=== PATIENT | female | born 1965 | race Caucasian/White ===

== ENCOUNTER → 2017-08-02 | Outpatient (CLI) | payer MEDICARE ==
[~2017-08-02] MED LIST: ASEN5TAB8 SL; BISA5TAB12 PO; CLON2TAB4 PO; ESOM40CA54 PO; LUBI24CA2 PO; ONDA4TAB4 PO; QUET400T54 PO; TRAM50TA4 PO; VENL37.587 PO
== END | disposition home or self-care (01) ==
LOC: RAH 10:57
PROVIDERS: ATTEND Family Medicine
DX: I51.7 Cardiomegaly (principal); R94.31 Abnormal electrocardiogram [ECG] [EKG]; R06.02 Shortness of breath
CPT/HCPCS: 93015; 93017; 93306

== ENCOUNTER → 2017-09-02 | Outpatient (CLI) | payer MEDICARE | LOC: OIH 10:14 | PROVIDERS: ATTEND Family Medicine | DX: Z01.818 Encounter for other preprocedural examination (principal) | CPT/HCPCS: 71046 ==

== ENCOUNTER 2017-11-13 11:15 | Observation (INO) | payer MEDICARE ==
[~2017-11-13] VITALS: Ht 161.3 cm; Wt 88.2 kg
[2017-11-13 12:06] VITALS: BP 131/81
[2017-11-13] MEDS ORDERED: CLON2TAB11 PO (12:13)
[2017-11-13] MEDS ORDERED: VENL37.587 PO (12:13)
[2017-11-13] MEDS ORDERED: ASEN5TAB8 SL (12:13)
[2017-11-13] MEDS ORDERED: ESOM40CA54 PO (12:13)
[2017-11-13] MEDS ORDERED: BISA5TAB12 PO (12:13)
[2017-11-13] MEDS ORDERED: QUET400T54 PO (12:13)
[2017-11-13] MEDS ORDERED: LUBI24CA2 PO (12:13)
[2017-11-13 12:14] LABS: HEMATOCRIT 45.8 % (36-48); MEAN CORPUSCULAR HEMOGLOBIN 30.9 pg (27.0-33.0); MEAN CORPUSCULAR HGB CONC 33.9 g/dL (32.0-36.0); MEAN CORPUSCULAR VOLUME 91.3 fL (79-99); PLATELET COUNT (AUTO) 250 K/uL (130-400); RED BLOOD CELL COUNT(AUTO) 5.02 MIL/uL (4.00-5.50); WHITE BLOOD COUNT (AUTO) 8.8 K/uL (4.8-10.8)
[2017-11-13 12:41] LABS: BASOPHILS % (MANUAL) 2 % (0-2); EOSINOPHILS % (MANUAL) 2 % (1-6); LYMPHOCYTES % (MANUAL) 50 % (22-44); MAN.DIFF COMMENT-IMPRESSION MANUAL DIFFERENTIAL; MONOCYTES % (MANUAL) 4 % (2-9); PLATELET MORPHOLOGY COMMENT ADEQUATE; REACTIVE LYMPHOCYTES 2 % (0-0); SEGMENTED NEUTROPHILS % 40 % (40-70)
[2017-11-14] VITALS (24 sets, daily range): BP systolic 106–138; BP diastolic 68–86
[2017-11-14] MEDS ORDERED: CLINDAMYCIN 900 MG/D5% WATER 50 ML IV ONE (07:22)
[2017-11-14] MEDS ORDERED: DEXAMETHASONE SOD PHOSPHATE 10MG/ML 1ML VIAL ONE (07:32)
[2017-11-14] MEDS ORDERED: GLYCOPYRROLATE 0.2 MG/ML 5 ML VIAL ONE (07:32)
[2017-11-14] MEDS ORDERED: MIDAZOLAM HCL 1 MG/ML 2ML VIAL ONE (07:32)
[2017-11-14] MEDS ORDERED: LIDOCAINE PF 2% 5ML ABBOJECT ONE (07:32)
[2017-11-14] MEDS ORDERED: PROPOFOL 10 MG/ML 20ML VIAL IV ONE (07:32)
[2017-11-14] MEDS ORDERED: ROPIVACAINE 0.5% 5MG/ML 30ML IJ ONE (07:39)
[2017-11-14] MEDS ORDERED: FENTANYL CITRATE PF 50 MCG/1 ML 2ML VIAL ONE (07:41)
[2017-11-14] MEDS ORDERED: MEPERIDINE-PF 25 MG/ML SYG ONE ×2 (09:22→09:34)
[2017-11-14 09:54] LABS: HEMATOCRIT 39.8 % (36-48)
[2017-11-14] MEDS ORDERED: BISACODYL 10 MG SUPP.RECT RC PRN (10:45)
[2017-11-14] MEDS ORDERED: MORPHINE SULFATE 10 MG/ML 1ML SYG IM PRN (10:45)
[2017-11-14] MEDS ORDERED: MAGNESIUM HYDROXIDE 30 ML/UDCUP PO PRN (10:45)
[2017-11-14] MEDS ORDERED: DEXTROSE 5%-LACTATED RINGERS 1,000 ML IV SCH (10:45)
[2017-11-14] MEDS ORDERED: MORPHINE SULFATE 4 MG/1ML SYG IM PRN (11:59)
[2017-11-14] MEDS: PROMETHAZINE HCL 25 MG/ML 1ML AMPULE IM PRN ×2 (12:04→19:19)
[2017-11-14] MEDS: CLINDAMYCIN 900 MG/D5% WATER 50 ML IV SCH ×2 (16:16→23:37)
[2017-11-14] MEDS: MORPHINE SULFATE 4 MG/1ML SYG IVP PRN ×2 (17:34→23:37)
[2017-11-14 18:11] LABS: HEMATOCRIT 40.1 % (36-48)
[2017-11-14] MEDS ORDERED: CLONAZEPAM 2 MG TABLET PO PRN (18:30)
[2017-11-14] MEDS ORDERED: KETOROLAC TROMETHAMINE 30MG/ML ONE (19:13)
[2017-11-14] MEDS: BISACODYL 5 MG TABLET.DR PO SCH (21:00)
[2017-11-14] MEDS: LUBIPROSTONE 24 MCG CAP PO SCH (21:00)
[2017-11-15 00:18] VITALS: BP 109/69
[2017-11-15 04:00] VITALS: BP 119/79
[2017-11-15] MEDS: KETOROLAC TROMETHAMINE 30MG/ML IV PRN ×2 (04:09→10:13)
[2017-11-15] MEDS: PROMETHAZINE HCL 25 MG/ML 1ML AMPULE IM PRN ×2 (04:14→10:16)
[2017-11-15] MEDS: BISACODYL 5 MG TABLET.DR PO SCH (08:09)
[2017-11-15] MEDS: LUBIPROSTONE 24 MCG CAP PO SCH (08:10)
[2017-11-15] MEDS: MORPHINE SULFATE 4 MG/1ML SYG IVP PRN ×2 (08:14→15:51)
[2017-11-15] MEDS ORDERED: VENLAFAXINE HCL XR 37.5 MG CAP PO SCH (09:00)
[2017-11-15 11:00] VITALS: BP 112/64
[2017-11-15] MEDS: TRAMADOL HCL 50 MG TABLET PO SCH ×2 (13:33→15:30)
[2017-11-15] MEDS ORDERED: TRAM50TA4 PO (17:38)
[2017-11-15] MEDS ORDERED: ONDA4TAB4 PO (17:39)
[2017-11-15] MEDS ORDERED: QUETIAPINE FUMARATE 400 MG PO SCH (21:00)
== END 2017-11-15 18:50 | disposition home or self-care (01) ==
LOC: DAHIP 11-14 06:17 → 4AH 11-14 09:49 → EDSTATUS 11-14 11:15
DX: M19.90 Unspecified osteoarthritis, unspecified site (principal); M22.40 Chondromalacia patellae, unspecified knee; Q24.0 Dextrocardia; E78.00 Pure hypercholesterolemia, unspecified; K21.9 Gastro-esophageal reflux disease without esophagitis; F41.9 Anxiety disorder, unspecified; F31.9 Bipolar disorder, unspecified; M22.02 Recurrent dislocation of patella, left knee; M22.12 Recurrent subluxation of patella, left knee; Z88.0 Allergy status to penicillin; I10 Essential (primary) hypertension; E78.5 Hyperlipidemia, unspecified
CPT/HCPCS: 27422; 27425; 36415 ×3; 85014 ×4; 85018 ×4; 85025; 94760; 96365; 96372 ×2; 96375 ×2; 96376 ×2; 97116 ×2; 97161; A4606; A4649; A4930 ×2; A6223; G0378 ×38; G8978; G8979; G8980; G8981; G8982; G8983; J1100; J1885 ×3; J2001; J2175 ×2; J2250; J2270 ×5; J2550 ×4; J2704; J2795; J3010; J3490 ×5; J7030; L1830

== ENCOUNTER → 2018-12-04 | Outpatient (CLI) | payer MEDICARE ==
[~2018-12-04] MED LIST changes: +CLON2TAB11 PO; -CLON2TAB4 PO
== END | disposition home or self-care (01) ==
LOC: OIH 10:43
PROVIDERS: ATTEND Family Medicine
DX: M17.12 Unilateral primary osteoarthritis, left knee (principal); M16.12 Unilateral primary osteoarthritis, left hip
CPT/HCPCS: 73502; 73562

== ENCOUNTER → 2019-09-08 | Outpatient (CLI) | payer MEDICARE | END | disposition home or self-care (01) | LOC: RAH 08:20 | PROVIDERS: ATTEND Internal Medicine | DX: K76.0 Fatty (change of) liver, not elsewhere classified (principal); Q39.3 Congenital stenosis and stricture of esophagus | CPT/HCPCS: 76705 ==

== ENCOUNTER 2022-09-22 21:57 | Emergency (ER) | payer MEDICARE ==
[~2022-09-22] VITALS: Ht 157.5 cm; Wt 71.7 kg
[~2022-09-22 21:57] MED LIST changes: +BISA-151 PO; -BISA5TAB12 PO
[2022-09-22 22:24] LABS: BASOPHILS % (AUTO) 0.8 % (0.0-5.0); EOSINOPHILS % (AUTO) 1.9 % (0.0-8.0); HEMATOCRIT 41.7 % (36-48); LYMPHOCYTES % (AUTO) 55.9 % (21.0-51.0); MEAN CORPUSCULAR HGB CONC 33.6 g/dL (32.0-36.0); MEAN CORPUSCULAR VOLUME 89.3 fL (79-99); MONOCYTES % (AUTO) 6.9 % (3.0-13.0); NEUTROPHILS % (AUTO) 34.2 % (40.0-77.0); PLATELET COUNT (AUTO) 252 K/uL (130-400); RED BLOOD CELL COUNT(AUTO) 4.67 MIL/uL (4.00-5.50); RED CELL DISTRIBUTION WIDTH 12.9 % (11.0-15.5)
[2022-09-22 22:31] LABS: APPEARANCE,URINE CLEAR (CLEAR); BILIRUBIN,URINE NEGATIVE (NEGATIVE); COLOR,URINE COLORLESS (YELLOW); GLUCOSE, URINE (UA) NEGATIVE (NEGATIVE); KETONES,URINE NEGATIVE (NEGATIVE); LEUKOCYTE ESTERASE ,URINE 75 Leu/uL (NEGATIVE); NITRATE,URINE NEGATIVE (NEGATIVE); OCCULT BLOOD,URINE NEGATIVE (NEGATIVE); PH,URINE 5.5 (5.0-8.0); PROTEIN,URINE NEGATIVE (NEGATIVE); UROBILINOGEN,URINE 0.2 mg/dL (0.2-1.0)
[2022-09-22 22:34] LABS: CARBON DIOXIDE 26 mmol/L (21-32); CHLORIDE 105 mmol/L (101-111); CREATININE 0.6 mg/dL (0.5-1.5); GLOMERULAR FILTR. RATE CALC 110 mL/min (>60); GLUCOSE,RANDOM 100 mg/dL (70-105); POTASSIUM 3.2 mmol/L (3.5-5.1); SODIUM SERUM 143 mmol/L (136-145); UREA NITROGEN, BLOOD 10 mg/dL (7-18)
[2022-09-22 22:38] LABS: ALANINE AMINOTRANSFERASE 37 U/L (12-78); ALBUMIN 4.2 g/dL (3.5-5.0); ALCOHOL, BLOOD 110 mg/dL (0-10); ASPARTATE AMINOTRANSFERASE 30 U/L (10-37); TOTAL PROTEIN, SERUM 7.8 g/dL (6.0-8.3)
[2022-09-22 22:41] LABS: ACETAMINOPHEN < 1 mcg/mL (10-30); SALICYLATE < 2.8 mg/dL (2.8-20.0)
[2022-09-22 22:43] LABS: AMPHET/METH SCREEN,URINE NEGATIVE (NEGATIVE); BARBITURATE SCREEN, URINE NEGATIVE (NEGATIVE); BENZODIAZEPINES SCREEN,URINE POSITIVE (NEGATIVE); CANNABINOID SCREEN,URINE NEGATIVE (NEGATIVE); COCAINE SCREEN,URINE NEGATIVE (NEGATIVE); OPIATE SCREEN,URINE NEGATIVE (NEGATIVE); PHENCYCLIDINE SCREEN,URINE NEGATIVE (NEGATIVE)
[2022-09-23] MEDS: POTASSIUM BICARB/CIT AC 25 MEQ TABLET.EFF PO STA ×2 (00:28→00:49)
[2022-09-23] MEDS ORDERED: KCL 20 MEQ ERTAB PO ONE (01:00)
[2022-09-23] MEDS ORDERED: ACETAMINOPHEN 500 MG TABLET PO ONE (05:00)
[2022-09-23 07:10] VITALS: BP 133/92
== END 2022-09-23 08:09 ==
LOC: EDH 21:57
DX: T42.4X2A Poisoning by benzodiazepines, intentional self-harm, initial encounter (principal); F32.9 Major depressive disorder, single episode, unspecified; R45.851 Suicidal ideations; E87.6 Hypokalemia; Z20.822 Contact with and (suspected) exposure to COVID-19; Z79.899 Other long term (current) drug therapy; Z88.0 Allergy status to penicillin; Y92.89 Other specified places as the place of occurrence of the external cause
CPT/HCPCS: 80053; 80305; 85025; 87088; 81001; 36415 ×2; 87635; 99291; 93005; G0481; C9803

== ENCOUNTER → 2023-08-01 | Outpatient (CLI) | payer MEDICARE | END | disposition home or self-care (01) | LOC: SHCH 12:42 | PROVIDERS: ATTEND Internal Medicine | DX: R06.02 Shortness of breath (principal) | CPT/HCPCS: 93306 ==

== ENCOUNTER → 2023-08-27 | Outpatient (CLI) | payer MEDICARE ==
[~2023-08-27] MED LIST changes: +IOHEXOL 350 MG/ML 100ML INFUS..BTL IV ONE; +METOPROLOL TARTRATE 1 MG/ML 5ML VIAL IV ONE
== END | disposition home or self-care (01) ==
LOC: RAH 09:00
PROVIDERS: ATTEND Internal Medicine
DX: R06.02 Shortness of breath (principal); R94.39 Abnormal result of other cardiovascular function study
CPT/HCPCS: 75574; J3490; Q9967